=== PATIENT | female | born 1985 | race Asian ===

== ENCOUNTER 2023-08-08 11:42 | Emergency (ER) | payer OTHER, SELFPAY ==
[2023-08-08 11:46] VITALS: BP 181/111; PULSE 88; RESP 18; TEMP 36.2; O2SAT 96; BMI 38.7
--- NOTE | 2023-08-08 12:33 | ED.EAR ---
HPI - Ear Problem <Iram Washington PA-C - Last Filed: 08/08/23 14:28> General Chief complaint: Ear Stated complaint: Left oustide ear pain/swollen Time Seen by Provider: 08/08/23 12:17 History of Present Illness HPI Narrative: Patient is a 37-year-old female with diabetes who presents with an infection anterior to her left ear. She reports a history of having a surgery approximately 20 years ago due to what sounds like a sinus tract in front of her ear. Occasionally even after the surgery she develops drainage from this tract. Last week she had a cold and starting 5 days ago noticed drainage, swelling and pain from the area. She went to urgent care on [place] 2 days ago and received a prescription for Bactrim. She has taken 4 doses but presents today because she is having significant pain, and the infection does not seem to be getting better. There is a blister. She denies measured fever but endorses chills. She has no cough, no sore throat, no GI symptoms or other complaints. She has no pain inside her ear and no difficulty swallowing. Related Data Allergies Allergy/AdvReac Type Severity Reaction Status Date / Time salmon oil Allergy Hives Verified 08/08/23 11:50 shellfish derived Allergy Hives Verified 08/08/23 11:50 Review of Systems <Iram Washington PA-C - Last Filed: 08/08/23 14:28> Review of Systems ROS Unobtainable: All systems reviewed & are unremarkable except as noted in HPI and below Patient History <Iram Washington PA-C - Last Filed: 08/08/23 14:28> Social History Smoking Status: Never smoker Smoking Status: Never smoker alcohol intake frequency: a few times a month Substance Use Type: does not use Exam <Iram Washington PA-C - Last Filed: 08/08/23 14:28> Narrative Exam Narrative: GENERAL: 37 year old patient appears stated age. Well-developed patient, in mild distress. NEURO: AOx3. HEAD: Atraumatic. Normocephalic. EYES: Pupils equal round and reactive. Extraocular motions intact. No scleral icterus. No injection or drainage. ENT: Nose without bleeding or purulent drainage. Throat without erythema, tonsillar hypertrophy or exudate. Airway patent. Visible erythema, edema and pustule anterior to left ear. No mastoid tenderness or swelling. External auditory canal without purulence or erythema, TM pearly and clear. NECK: Trachea midline. Non tender. RESPIRATORY: No increased work of breathing or distress SKIN: No rash or erythema of visible areas Initial Vital Signs Initial Vital Signs: Vital Signs Temperature 97.1 F L 08/08/23 11:46 Pulse Rate 88 08/08/23 11:46 Respiratory Rate 18 08/08/23 11:46 Blood Pressure 181/111 H 08/08/23 11:46 Pulse Oximetry 96 08/08/23 11:46 Oxygen Delivery Method Room Air 08/08/23 11:46 <Carley Moore DO - Last Filed: 08/08/23 17:54> Initial Vital Signs Initial Vital Signs: Vital Signs Temperature 97.1 F L 08/08/23 11:46 Pulse Rate 88 08/08/23 11:46 Respiratory Rate 18 08/08/23 11:46 Blood Pressure 181/111 H 08/08/23 11:46 Pulse Oximetry 96 08/08/23 11:46 Oxygen Delivery Method Room Air 08/08/23 11:46 Procedures <Iram Washington PA-C - Last Filed: 08/08/23 14:28> Abscess I/D I&D #1: Site: other (preauricular) Side (if applicable): left Local Anesthetic: lidocaine 1% Amount of anesthesia used (mL): 0.5 Technique: incised with #11 blade Amount of fluid expressed (mL): 1 Course <Iram Washington PA-C - Last Filed: 08/08/23 14:28> Orders Ordered: ED Orders 08/08/23 12:58 Wound Culture and Gram Stain Stat Discontinued Medications Bacitracin (Bacitracin Oint 0.9 Gm Pckt) 1 applic TOP NOW ONE Stop: 08/08/23 12:56 Last Admin: 08/08/23 13:00 Dose: 1 applic Documented By: NEVILLE Lidocaine HCl (Lidocaine 1% (Pf) 5 Ml) 10 ml INJ NOW ONE Stop: 08/08/23 12:33 Last Admin: 08/08/23 12:41 Dose: 10 ml Documented By: NEVILLE Vital Signs Vital signs: Vital Signs - 8 hr 11/22/23 11:46 08/08/23 13:11 Temperature 97.1 F L Pulse Rate 88 85 Respiratory Rate 18 18 Blood Pressure 181/111 H 158/101 H Pulse Oximetry 96 99 Oxygen Delivery Method Room Air Room Air <Carley Moore DO - Last Filed: 08/08/23 17:54> Orders Ordered: ED Orders 08/08/23 12:58 Wound Culture and Gram Stain Stat Discontinued Medications Bacitracin (Bacitracin Oint 0.9 Gm Pckt) 1 applic TOP NOW ONE Stop: 08/08/23 12:56 Last Admin: 08/08/23 13:00 Dose: 1 applic Documented By: BS Lidocaine HCl (Lidocaine 1% (Pf) 5 Ml) 10 ml INJ NOW ONE Stop: 08/08/23 12:33 Last Admin: 08/08/23 12:41 Dose: 10 ml Documented By: NEVILLE Vital Signs Vital signs: Vital Signs - 8 hr 08/08/23 11:46 08/08/23 13:11 Temperature 97.1 F L Pulse Rate 88 85 Respiratory Rate 18 18 Blood Pressure 181/111 H 158/101 H Pulse Oximetry 96 99 Oxygen Delivery Method Room Air Room Air Medical Decision Making <Iram Washington PA-C - Last Filed: 08/08/23 14:28> MDM Narrative Medical decision making narrative: Multiple etiologies for patient's symptoms considered including, but not limited to: Cellulitis, cellulitis with abscess. Infection appears localized, no evidence of infection in the external auditory canal or TM. Patient does not have trismus or swelling in the neck. Abscess drained and 1-2 cc of purulent material expressed. Patient tolerated well. Wound culture sent. Advised patient to continue Bactrim, she has 8 days left. After the I&D I expect this will clear up more quickly. She can use Tylenol and ice or heat for comfort. If she develops fevers, acutely worsening pain or swelling or other worrisome symptoms, she should return for re-evaluation. If the infection has not resolved by the completion of the antibiotics, she should return for reassessment. Patient's symptoms improved over duration of stay with above-stated therapies. Findings and discharge diagnosis discussed with patient/family followed by verbalization of understanding Return precautions discussed with patient/family whom verbalize understanding of diagnosis and plan Discharge Plan Departure Patient Disposition: Home Clinical Impression: Abscess of preauricular sinus Instructions: DI for Cellulitis -- Adult Activity Restrictions/Additional Instructions: *You have been diagnosed with cellulitis with an abscess of preauricular pit. There is no evidence of infection ear ear. Today we were able to drain the abscess and collect a sample of the pus. If the culture grows a bacteria that we will not be well treated by the antibiotic you are already on, we will call you and let you know. Please continue taking the Bactrim twice daily until all the pills are gone. I would expect this medicine to work better now that we have drained the infection. Keep the area clean and dry. We have applied antibiotic ointment and a Band-Aid today you do not need to leave this in place after tonight. *What to do: *Please continue to take your regular medications as directed. [ ] New medication prescriptions sent to your pharmacy: [ ] [ ] New medication written as a paper prescription [x ] No new medications given *Please follow up with your primary care provider in 2-3 days, call for an appointment. Let them know you were seen in the Emergency Department and that we ask that you be seen in follow up. We will electronically transmit a record of today's note if your PCP is in our system *If you do not have a primary care provider please contact the [facility] Resource line at [phone]. They will ask some questions about your medical history and help get you set up with a doctor in the community. *Return to Emergency Department if you should have any new, worsening or concerning symptoms, such as [fever greater than 101 F, shaking chills, worsening pain, persistent vomiting or other concerning symptoms]. Stand Alone Forms: Patient Portal/API ED Sign-out <Carley Moore DO - Last Filed: 08/08/23 17:54> Cosign ED Attending Isabela Attestation: I was immediately available in the department for consultation.
[2023-08-08] MEDS: LIDOCAINE 1% (PF) 5 ML 10 ML INJ (12:41)
[2023-08-08] MEDS: BACITRACIN OINT 0.9 GM PCKT 1 APPLIC TOP (13:00)
[2023-08-08 13:11] VITALS: BP 158/101; PULSE 85; RESP 18; O2SAT 99
== END 2023-08-08 13:13 | disposition home or self-care (01) ==
PROVIDERS: Emergency Provider Physician Assistant
DX: H60.02 Abscess of left external ear (principal)
CPT/HCPCS: 69000; 87070; 87075; 87205; 99282; 99283

== ENCOUNTER 2024-06-22 17:45 | Emergency (ER) | payer OTHER, SELFPAY ==
[2024-06-22] VITALS (11 sets, daily range): BP systolic 141–214; BP diastolic 73–122; PULSE 77–128; RESP 10–24; TEMP 36.8; O2SAT 97–100; BMI 40.6
--- NOTE | 2024-06-22 17:49 | EKG_ITS ---
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
--- NOTE | 2024-06-22 18:17 | DI.RAD.S_ITS ---
PROCEDURE: XR CHEST 1V INDICATIONS: chest pain TECHNIQUE: One view of the chest was acquired. COMPARISON: None. FINDINGS: Surgical changes and devices: None. Lungs and pleura: Lungs are clear. No pleural effusions or pneumothorax. Mediastinum: Mediastinal contours appear normal. Heart size is normal. Bones and chest wall: No suspicious bony lesions. Overlying soft tissues appear unremarkable. IMPRESSION: No acute cardiopulmonary abnormality is seen. Approved by: Grant Ruelas M.D. on 06/22/2024 at 17:52
--- NOTE | 2024-06-22 18:19 | EKG_ITS ---
[place] [address] [place] [id number] Test Date: 2024-06-22 Pat Name: Fe Loco Department: 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
[2024-06-22 18:28] LABS: Add Manual Diff / Slide Review NO; Basophils Absolute Auto 100 /uL (0-100); Basophils Percent Auto 0.4 % (0-2); Eosinophils Absolute Auto 200 /uL (0-450); Eosinophils Percent Auto 1.3 % (2-4); Hematocrit 43.3 % (36-46); Hemoglobin 14.3 g/dL (12.0-16.0); Lymphocytes Absolute Auto 3700 /uL (1100-4500); Lymphocytes Percent Auto 31.3 % (25-40); Mean Corpuscular HGB Conc 33.1 % (30-36); Mean Corpuscular Hemoglobin 30.4 PG (26-34); Mean Corpuscular Volume 91.7 fL (80-100); Monocytes Absolute Auto 600 /uL (0-900); Monocytes Percent Auto 5.1 % (3-14); Neutrophils Absolute Auto 7400 /uL (1500-7000); Neutrophils Percent Auto 61.9 % (50-75); Platelet Count 264 X10^3/uL (150-400); Red Blood Cell Count 4.73 X10^6/uL (4.0-5.2); White Blood Cell Count 11.9 X10^3/uL (4.5-11.0)
[2024-06-22 18:32] LABS: INR 1.2 (0.9-1.3); Prothrombin Time 13.5 SECONDS (9.4-12.5)
[2024-06-22 18:35] LABS: PTT Partial Thromboplastin Tim 39 SECONDS (25.1-36.5)
[2024-06-22 18:37] LABS: Alanine Aminotransferase 40 IU/L (<35); Albumin 4.8 g/dL (3.5-5.0); Albumin Globulin Ratio 1.4 (1.0-2.8); Alkaline Phosphatase 95 U/L (38-126); Aspartate Aminotransferase 33 IU/L (14-36); BUN Creatinine Ratio 14.9 (6-22); Bilirubin Total 0.6 mg/dL (0.2-1.3); Blood Urea Nitrogen 13 mg/dL (7-17); Calcium 9.6 mg/dL (8.4-10.2); Carbon Dioxide 20 mmol/L (22-32); Chloride 105 mmol/L (98-107); Creatine Kinase 303 U/L (30-135); Estimated Glomerular Filt Rate > 60 mL/min (>60); Globulin 3.4 g/dL (1.7-4.1); Glucose 113 mg/dL (70-100); HEMOLYSIS 49 (0-50); Lipase 219 U/L (23-300); Magnesium 1.6 mg/dL (1.6-2.3); Sodium 138 mmol/L (137-145); Total Protein 8.2 g/dL (6.3-8.2)
[2024-06-22 18:49] LABS: NT-proBNP (BNP-Adult 18+) 1200 pg/mL (<125); Troponin I < 0.012 ng/mL (0.01-0.034)
--- NOTE | 2024-06-22 18:49 | ED.ARRPALP ---
HPI - Arrhythmia/Palpitations General Chief Complaint: Arrhythmia/Palpitations Stated Complaint: HBP, rapid heartbeat Time Seen by Provider: 06/22/24 18:19 Source: patient Mode of arrival: Ambulatory History of Present Illness HPI narrative: Patient is a 38-year-old female. Has a history of atrial fibrillation. He was on Eliquis. Is also on diltiazem, metoprolol and flecainide. She had an attempted cardioversion by Cardiology at the end of last week that was unsuccessful. She was scheduled to have another cardioversion at the end of this week. She comes emergency department today due to an elevation in her blood pressure and rapid heart rate. She states she was in atrial fibrillation all the time but she felt like her heart rate became much quicker earlier in the day today. She feels that she can feel her heartbeat all the way down into her toes. No chest pain. No shortness of breath. She also noticed that her blood pressure was elevated. She did not take her diltiazem this morning because her heart rate was in the 60s and her systolic blood pressure was in the 90s. Her instructions were to not take this medication if her heart rate and blood pressure were low. She did take a dose of her metoprolol before coming to the emergency department. She was not taken her evening rate control medications. Related Data Allergies Allergy/AdvReac Type Severity Reaction Status Date / Time salmon oil Allergy Hives Verified 08/08/23 11:50 shellfish derived Allergy Hives Verified 08/08/23 11:50 Review of Systems Review of Systems ROS Unobtainable: All systems reviewed & are unremarkable except as noted in HPI and below Patient History Social History Smoking Status: Never smoker Smoking Status: Never smoker alcohol intake frequency: a few times a month Substance Use Type: does not use Exam Initial Vital Signs Initial Vital Signs: Vital Signs Temperature 98.3 F 06/22/24 17:50 Pulse Rate 125 H 06/22/24 17:50 Respiratory Rate 21 06/22/24 17:50 Blood Pressure 214/122 H 06/22/24 17:50 Pulse Oximetry 99 06/22/24 17:50 Oxygen Delivery Method Room Air 06/22/24 17:50 Const General: cooperative, comfortable and No ill appearing HENMT Head: normal to inspection and normocephalic Resp Effort & Inspection: normal respiratory effort Auscultation: clear to auscultation bilaterally Cardio Rate: tachycardic Rhythm: regular rhythm GI Inspection: normal to inspection Skin General: no rashes or lesions noted Neuro General: patient alert, patient awake and moves all extremities Extrem General: capillary refill normal Course Orders Ordered: ED Orders 06/22/24 17:49 EKG-12 Lead Stat 06/22/24 18:10 Complete Blood Count AUTO DIFF Stat Comprehensive Metabolic Panel Stat Lipase Stat Magnesium Stat NT-proBNP (BNP-Adult 18+) Stat PTT Partial Thromboplastin [place] Stat Prothrombin Time INR Stat Troponin & CK Cardiac Panel Stat 06/22/24 18:17 XR chest 1V Stat 06/22/24 18:19 EKG-12 Lead Stat 06/22/24 20:44 EKG-12 Lead Stat Discontinued Medications Aspirin (Aspirin 81 Mg Chew Tab) 324 mg PO NOW ONE Stop: 06/22/24 18:18 Last Admin: 06/22/24 18:43 Dose: Not Given Documented By: RUFINO Vital Signs Vital signs: Vital Signs - 8 hr 06/22/24 18:25 06/22/24 18:28 06/22/24 18:28 Pulse Rate 127 H 128 H Respiratory Rate 12 11 L Blood Pressure 183/108 H Pulse Oximetry 99 Oxygen Delivery Method 06/22/24 18:30 06/22/24 18:30 06/22/24 19:00 Pulse Rate 128 H Respiratory Rate 10 L Blood Pressure 182/102 H 175/95 H Pulse Oximetry 100 Oxygen Delivery Method Room Air 06/22/24 19:00 06/22/24 19:30 06/22/24 19:32 Pulse Rate 116 H 121 H Respiratory Rate 21 Blood Pressure 187/105 H Pulse Oximetry 99 98 Oxygen Delivery Method 06/22/24 19:32 06/22/24 20:00 06/22/24 20:01 Pulse Rate 121 H 118 H Respiratory Rate 16 21 Blood Pressure 157/85 H Pulse Oximetry 97 98 Oxygen Delivery Method 06/22/24 20:01 06/22/24 20:30 06/22/24 21:00 Pulse Rate 118 H Respiratory Rate 21 Blood Pressure 141/86 H 149/73 H Pulse Oximetry 99 Oxygen Delivery Method 06/22/24 21:00 Pulse Rate 77 Respiratory Rate 24 Blood Pressure Pulse Oximetry 98 Oxygen Delivery Method MDM - Arrhythmia/Palpitations Lab Data Attestation: I reviewed the patient's lab results. 06/22/24 18:10 06/22/24 18:10 Labs: Lab Results 06/22/24 Range/Units 18:10 WBC 11.9 H (4.5-11.0) X10^3/uL RBC 4.73 (4.0-5.2) X10^6/uL Hgb 14.3 (12.0-16.0) g/dL Hct 43.3 (36-46) % MCV 91.7 (80-100) fL MCH 30.4 (26-34) PG MCHC 33.1 (30-36) % RDW 15.0 H (11.6-14.8) % Plt Count 264 (150-400) X10^3/uL Neut % (Auto) 61.9 (50-75) % Lymph % (Auto) 31.3 (25-40) % [place] % (Auto) 5.1 (3-14) % Eos % (Auto) 1.3 L (2-4) % Baso % (Auto) 0.4 (0-2) % Neut # (Auto) 7400 H (1816-4331) /uL Lymph # (Auto) 3700 (8486-4607) /uL [place] # (Auto) 600 (0-900) /uL Eos # (Auto) 200 (0-450) /uL Baso # (Auto) 100 (0-100) /uL PT 13.5 H (9.4-12.5) SECONDS INR 1.2 (0.9-1.3) APTT 39 H (25.1-36.5) SECONDS Sodium 138 (137-145) mmol/L Potassium 4.0 (3.4-5.1) mmol/L Chloride 105 (98-107) mmol/L Carbon Dioxide 20 L (22-32) mmol/L BUN 13 (7-17) mg/dL Creatinine 0.87 (0.52-1.04) mg/dL Estimated GFR > 60 (>60) mL/min BUN/Creatinine Ratio 14.9 (6-22) Glucose 113 H (70-100) mg/dL Calcium 9.6 (8.4-10.2) mg/dL Magnesium 1.6 (1.6-2.3) mg/dL Total Bilirubin 0.6 (0.2-1.3) mg/dL AST 33 (14-36) IU/L ALT 40 H (<35) IU/L Alkaline Phosphatase 95 (38-126) U/L Total Creatine Kinase 303 H (30-135) U/L Troponin I < 0.012 (0.01-0.034) ng/mL NT-Pro-B Natriuret Pep 1200 H (<125) pg/mL Total Protein 8.2 (6.3-8.2) g/dL Albumin 4.8 (3.5-5.0) g/dL Globulin 3.4 (1.7-4.1) g/dL Albumin/Globulin Ratio 1.4 (1.0-2.8) Lipase 219 (23-300) U/L Imaging Data Chest x-ray: Radiologist's Impresson: PROCEDURE: XR CHEST 1V INDICATIONS: chest pain TECHNIQUE: One view of the chest was acquired. COMPARISON: None. FINDINGS: Surgical changes and devices: None. Lungs and pleura: Lungs are clear. No pleural effusions or pneumothorax. Mediastinum: Mediastinal contours appear normal. Heart size is normal. Bones and chest wall: No suspicious bony lesions. Overlying soft tissues appear unremarkable. IMPRESSION: No acute cardiopulmonary abnormality is seen. ECG Data Attestation: I personally reviewed and interpreted this ECG as follows: Interpretation: Presentation EKG Atrial flutter Ventricular rate 128 Normal axis Normal QRS No ST T wave changes Repeat EKG Atrial flutter Ventricular rate [address] T wave changes Repeat EKG Atrial flutter Ventricular rate is [address] T wave changes MDM Narrative Medical decision making narrative: Patient has a known history of atrial fibrillation and it appears that she was in atrial flutter here in the ER. She was tachycardic. Labs are unremarkable. Initially she was given another dose of her home metoprolol and also her evening dose of the flecainide. This did improve her heart rate somewhat but she was still feeling the palpitations. She then was given her evening dose of diltiazem. Now her heart rate is more consistently in the 95-105 range. She was feeling better. She was on anticoagulation however we will hold on any cardioversion for now she was scheduled to have this done later this week Cardiology and she recently had a failed cardioversion advised the patient that tomorrow she should just start taking her normal rate control medications as directed. She was given return precautions and follow-up instructions. She expressed understanding and agreement. Discharge Plan Departure Patient Disposition: Home Clinical Impression: Atrial fibrillation Instructions: DI for Atrial Fibrillation Activity Restrictions/Additional Instructions: Recommend that you continue to take all of your medications as directed starting tomorrow morning. Keep all of your scheduled medical appointments. Return to the emergency department for new symptoms. Referrals: ProviderMichelle [Primary Care Provider] - Stand Alone Forms: Patient Portal/API
--- NOTE | 2024-06-22 18:50 | PC.NURSE ---
Provider okayed the patient to take their home 25mg of metoprolol and 100mg of flecanide
--- NOTE | 2024-06-22 20:49 | EKG_ITS ---
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
== END 2024-06-22 21:15 | disposition home or self-care (01) ==
PROVIDERS: Emergency Provider Emergency Medicine
DX: I48.92 Unspecified atrial flutter (principal); Z79.01 Long term (current) use of anticoagulants; R07.9 Chest pain, unspecified; R00.0 Tachycardia, unspecified; I10 Essential (primary) hypertension
CPT/HCPCS: 36415; 71045; 80053; 82550; 83690; 83735; 83880; 84484; 85025; 85610; 85730; 93005; 93010; 99283; 99284

== ENCOUNTER 2024-06-30 22:15 | Emergency (ER) | payer OTHER, SELFPAY ==
[2024-06-30] VITALS (9 sets, daily range): BP systolic 173–208; BP diastolic 72–116; PULSE 75–154; RESP 16–25; TEMP 37.3; O2SAT 98–99; BMI 40.1
--- NOTE | 2024-06-30 22:26 | EKG_ITS ---
[place] [id number] [place] [id number] Test Date: 2024-06-30 Pat Name: Fe Loco Department: [facility] Room: Gender: Female Critical Care Unit Nurse: JEY : 1985 Requested By: Order Number: [id number] Reading MD: Marv Kitchen Measurements Intervals [place] Rate: 149 P: [place]: QRS: 110 QRSD: 92 T: 1 QT: 338 QTc: 532 Interpretive Statements Critical Test Result: High HR Supraventricular tachycardia Left posterior fascicular block Inferior infarct , age undetermined Cannot rule out Anterior infarct , age undetermined Electronically Signed On 07-02-2024 18:06:22 PDT by Marv Kitchen
--- NOTE | 2024-06-30 22:27 | ED.ARRPALP ---
HPI - Arrhythmia/Palpitations General Chief Complaint: Arrhythmia/Palpitations Stated Complaint: sudden increase in bp Time Seen by Provider: 06/30/24 22:27 Source: patient Mode of arrival: Ambulatory History of Present Illness HPI narrative: Patient 38-year-old female history of atrial fibrillation on flecainide metoprolol Eliquis presenting today with AFib. She reports that she cardioversion with Cardiology 3 days ago she has previously had cardioversions which are difficult or do not last this seems to be similar. She says she was in sinus rhythm after the cardioversion but felt her heart racing in her watch told her that she was in AFib. She also noted elevated blood pressure as well. She also states that she is running out of her flecainide she was supposed to take a full tablet of flecainide which got increased from 50 mg to 100 mg but did not have enough so she has only been taking half. She was also told to stop taking her metoprolol after the cardioversion when she was in sinus rhythm. She just feels it palpating and fluttering inside chest/she is found to be in AFib with RVR heart rate is 154 Related Data Previous Rx's Medication Instructions Recorded flecainide 100 mg tablet 100 mg PO Q12H #60 tabs 07/01/24 Allergies Allergy/AdvReac Type Severity Reaction Status Date / Time salmon oil Allergy Hives Verified 08/08/23 11:50 shellfish derived Allergy Hives Verified 08/08/23 11:50 Patient History Social History Smoking Status: Never smoker Smoking Status: Never smoker alcohol intake frequency: a few times a month Substance Use Type: does not use Exam Initial Vital Signs Initial Vital Signs: Vital Signs Temperature 99.2 F 06/30/24 22:20 Pulse Rate 154 H 06/30/24 22:20 Respiratory Rate 16 06/30/24 22:20 Blood Pressure 176/116 H 06/30/24 22:20 Pulse Oximetry 98 06/30/24 22:20 Oxygen Delivery Method Room Air 06/30/24 22:20 GENERAL: Alert pleasant 38 year female HEENT: Head atraumatic,EOMI, pupils reactive, face symmetric, moist mucous membranes CARDIOVASCULAR: Irregularly irregular no murmur RESPIRATORY: Breath sounds equal bilaterally, no wheezes rales or rhonchi. ABDOMEN: Soft, nontender. Normoactive bowel sounds all 4 quadrants. No guarding or rebound. EXTREMITIES: Normal range of motion, no clubbing or edema. Neurovascularly intact NEUROLOGICAL: Alert and oriented x4.Normal gait and speech. Cranial nerves II through XII grossly intact. SKIN: Warm, dry, no laceration, no petechiae, no rashes or lesions. Course Orders Ordered: ED Orders 06/30/24 22:26 XR chest 1V Stat EKG-12 Lead Stat 06/30/24 22:34 Complete Blood Count AUTO DIFF Stat Comprehensive Metabolic Panel Stat Lipase Stat Magnesium Stat NT-proBNP (BNP-Adult 18+) Stat PTT Partial Thromboplastin Lorne Stat Prothrombin Time INR Stat Troponin & CK Cardiac Panel Stat Discontinued Medications Diltiazem HCl (Diltiazem 25 Mg/5 Ml Sdv) 10 mg IV NOW ONE Stop: 06/30/24 22:29 Last Admin: 06/30/24 22:35 Dose: 10 mg Documented By: JULIAN Flecainide Acetate (Flecainide 100 Mg Tablet) 100 mg PO NOW ONE Stop: 07/01/24 00:33 Last Admin: 07/01/24 00:49 Dose: 100 mg Documented By: CHANDU Metoprolol Tartrate (Metoprolol Tartrate 5 Mg/5 Ml Inj) 5 mg IV NOW ONE Stop: 07/01/24 00:33 Last Admin: 07/01/24 00:49 Dose: 5 mg Documented By: CHANDU Metoprolol Tartrate (Metoprolol Ir 25 Mg Tablet) 25 mg PO NOW ONE Stop: 07/01/24 00:33 Last Admin: 07/01/24 00:49 Dose: 25 mg Documented By: CHANDU Vital Signs Vital signs: Vital Signs - 8 hr 06/30/24 22:20 06/30/24 22:35 06/30/24 22:39 Temperature 99.2 F Pulse Rate 154 H 150 H Respiratory Rate 16 Blood Pressure 176/116 H 179/101 H Pulse Oximetry 98 Oxygen Delivery Method Room Air 06/30/24 22:40 06/30/24 22:45 06/30/24 22:45 Temperature Pulse Rate 146 H 75 Respiratory Rate 22 23 Blood Pressure 208/88 H Pulse Oximetry 99 99 Oxygen Delivery Method Room Air 06/30/24 23:00 06/30/24 23:01 06/30/24 23:01 Temperature Pulse Rate 75 75 Respiratory Rate 23 25 H Blood Pressure 184/81 H Pulse Oximetry 98 99 Oxygen Delivery Method Room Air 06/30/24 23:30 06/30/24 23:31 06/30/24 23:31 Temperature Pulse Rate 91 H 101 H Respiratory Rate 23 24 Blood Pressure 173/72 H Pulse Oximetry 99 98 Oxygen Delivery Method Room Air Room Air 07/01/24 00:00 07/01/24 00:01 07/01/24 00:01 Temperature Pulse Rate 144 H 144 H Respiratory Rate 19 23 Blood Pressure 148/73 H Pulse Oximetry 97 98 Oxygen Delivery Method Room Air 07/01/24 00:30 07/01/24 00:31 07/01/24 00:31 Temperature Pulse Rate 144 H 144 H Respiratory Rate 21 19 Blood Pressure 155/75 H Pulse Oximetry 98 98 Oxygen Delivery Method Room Air 07/01/24 01:00 07/01/24 01:01 07/01/24 01:01 Temperature Pulse Rate 75 75 Respiratory Rate 22 21 Blood Pressure 131/66 Pulse Oximetry 96 97 Oxygen Delivery Method Room Air MDM - Arrhythmia/Palpitations Lab Data 06/30/24 22:34 06/30/24 22:34 Labs: Lab Results 06/30/24 Range/Units 22:34 WBC 12.7 H (4.5-11.0) X10^3/uL RBC 4.79 (4.0-5.2) X10^6/uL Hgb 14.6 (12.0-16.0) g/dL Hct 43.5 (36-46) % MCV 90.8 (80-100) fL MCH 30.6 (26-34) PG MCHC 33.6 (30-36) % RDW 14.8 (11.6-14.8) % Plt Count 251 (150-400) X10^3/uL Neut % (Auto) 55.2 (50-75) % Lymph % (Auto) 35.6 (25-40) % [place] % (Auto) 7.1 (3-14) % Eos % (Auto) 1.3 L (2-4) % Baso % (Auto) 0.8 (0-2) % Neut # (Auto) 7000 (0694-4434) /uL Lymph # (Auto) 4500 (7551-0733) /uL [place] # (Auto) 900 (0-900) /uL Eos # (Auto) 200 (0-450) /uL Baso # (Auto) 100 (0-100) /uL PT 13.4 H (9.4-12.5) SECONDS INR 1.2 (0.9-1.3) APTT 40 H (25.1-36.5) SECONDS Sodium 137 (137-145) mmol/L Potassium 3.7 (3.4-5.1) mmol/L Chloride 104 (98-107) mmol/L Carbon Dioxide 18 L (22-32) mmol/L BUN 11 (7-17) mg/dL Creatinine 0.71 (0.52-1.04) mg/dL Estimated GFR > 60 (>60) mL/min BUN/Creatinine Ratio 15.5 (6-22) Glucose 99 (70-100) mg/dL Calcium 10.0 (8.4-10.2) mg/dL Magnesium 1.8 (1.6-2.3) mg/dL Total Bilirubin 0.5 (0.2-1.3) mg/dL AST 38 H (14-36) IU/L ALT 50 H (<35) IU/L Alkaline Phosphatase 107 (38-126) U/L Total Creatine Kinase 478 H (30-135) U/L Troponin I < 0.012 (0.01-0.034) ng/mL NT-Pro-B Natriuret Pep 359 H (<125) pg/mL Total Protein 8.5 H (6.3-8.2) g/dL Albumin 4.7 (3.5-5.0) g/dL Globulin 3.8 (1.7-4.1) g/dL Albumin/Globulin Ratio 1.2 (1.0-2.8) Lipase 220 (23-300) U/L Imaging Data Chest x-ray: Radiologist's Impresson: PROCEDURE: XR CHEST 1V INDICATIONS: chest pain TECHNIQUE: One view of the chest was acquired. COMPARISON: [facility], , XR CHEST 1V, 06/22/2024, 18:27. FINDINGS: Surgical changes and devices: None. Lungs and pleura: Lungs are clear. No pleural effusions or pneumothorax. Mediastinum: Mediastinal contours appear normal. Heart size is normal. Bones and chest wall: No suspicious bony lesions. Overlying soft tissues appear unremarkable. IMPRESSION: No acute cardiothoracic process. Dictated by: Arvin Amaral M.D. on 06/30/2024 at 22:59 ECG Data Attestation: I personally reviewed and interpreted this ECG as follows: Prior ECG tracings: available for review Interpretation: AFib with RVR rate 149 previous EKG does show atrial flutter rate 75 MDM Narrative Medical decision making narrative: MDM CC: Palpitations Complicating co-morbidities: Atrial fibrillation atrial flutter Medical records reviewed: Previous ED visits Differential considered: Atrial fibrillation Exam documented above, pertinent findings include: Awake alert well-appearing 38-year-old female initially tachycardic no lower extremity edema Lab Test results independently reviewed as above. Pertinent findings: WBC 12.7 previously 11.9 CMP significant electrolyte abnormalities bicarb is noted to be 18 it was previously 20 creatinine is 0.7 Elevation liver enzymes AST 30 ALT 50 BNP is 359, previously 1200, troponin negative Independently reviewed EKG as above AFib with RVR Imaging studies independently reviewed: Chest x-ray no acute cardiopulmonary process Consultations: None Treatments: Diltiazem 10 mg, flecainide 100, metoprolol 25 and Lopressor 5 Re-evaluations: Initially diltiazem worked but started wearing are often heart rate started creeping back up and she became more symptomatic Discussion: Patient 38-year-old female history of atrial fibrillation multiple cardioversions previously not really successful. It sounds as though she was cutting her flecainide from 100 mg to 50 mg. Her prescription is actually for 50 mg but some point she was told to go up but does not have enough pills for it. She was also told to stop her metoprolol after she was in sinus rhythm after her last cardioversion. She presents today with AFib with RVR. She initially responded well to diltiazem. However it did wear off and heart rate was back up again she is symptomatic when it is high feels much better when it is low. I gave her 100 mg of flecainide and 25 mg of metoprolol. Heart rate stabilized in the 70s. Recommend she call and follow up with Cardiology tomorrow Discharge Plan Departure Patient Disposition: Home Clinical Impression: Atrial fibrillation Instructions: DI for Atrial Fibrillation Activity Restrictions/Additional Instructions: *You have been diagnosed with atrial fibrillation *What to do: Please call your concrete technician tomorrow to discuss medications *Continue to take medications as directed Flecainide 100 mg twice a day *Follow up with your primary care provider in 2-3 days or call [phone] *Return to ER if you should have increased palpitations dizziness or lightheadedness or any new, worsening or concerning symptoms Prescriptions: New flecainide 100 mg tablet 100 mg PO Q12H Qty: 60 0RF Referrals: ProviderMichelle [Primary Care Provider] - Stand Alone Forms: Patient Portal/API
[2024-06-30] MEDS: dilTIAZem 25 MG/5 ML SDV 10 MG IV (22:35)
[2024-06-30 22:43] LABS: Add Manual Diff / Slide Review NO; Basophils Absolute Auto 100 /uL (0-100); Basophils Percent Auto 0.8 % (0-2); Eosinophils Absolute Auto 200 /uL (0-450); Eosinophils Percent Auto 1.3 % (2-4); Hematocrit 43.5 % (36-46); Hemoglobin 14.6 g/dL (12.0-16.0); Lymphocytes Absolute Auto 4500 /uL (1100-4500); Lymphocytes Percent Auto 35.6 % (25-40); Mean Corpuscular HGB Conc 33.6 % (30-36); Mean Corpuscular Hemoglobin 30.6 PG (26-34); Mean Corpuscular Volume 90.8 fL (80-100); Monocytes Absolute Auto 900 /uL (0-900); Monocytes Percent Auto 7.1 % (3-14); Neutrophils Absolute Auto 7000 /uL (1500-7000); Neutrophils Percent Auto 55.2 % (50-75); Platelet Count 251 X10^3/uL (150-400); Red Blood Cell Count 4.79 X10^6/uL (4.0-5.2); Red Cell Distribution Width 14.8 % (11.6-14.8); White Blood Cell Count 12.7 X10^3/uL (4.5-11.0)
[2024-06-30 22:51] LABS: INR 1.2 (0.9-1.3); Prothrombin Time 13.4 SECONDS (9.4-12.5)
[2024-06-30 22:53] LABS: PTT Partial Thromboplastin Tim 40 SECONDS (25.1-36.5)
[2024-06-30 22:56] LABS: Alanine Aminotransferase 50 IU/L (<35); Albumin 4.7 g/dL (3.5-5.0); Albumin Globulin Ratio 1.2 (1.0-2.8); Alkaline Phosphatase 107 U/L (38-126); Aspartate Aminotransferase 38 IU/L (14-36); BUN Creatinine Ratio 15.5 (6-22); Bilirubin Total 0.5 mg/dL (0.2-1.3); Blood Urea Nitrogen 11 mg/dL (7-17); Carbon Dioxide 18 mmol/L (22-32); Chloride 104 mmol/L (98-107); Creatine Kinase 478 U/L (30-135); Estimated Glomerular Filt Rate > 60 mL/min (>60); Globulin 3.8 g/dL (1.7-4.1); Glucose 99 mg/dL (70-100); HEMOLYSIS 23 (0-50); Lipase 220 U/L (23-300); Magnesium 1.8 mg/dL (1.6-2.3); Potassium 3.7 mmol/L (3.4-5.1); Sodium 137 mmol/L (137-145); Total Protein 8.5 g/dL (6.3-8.2)
[2024-06-30 23:07] LABS: NT-proBNP (BNP-Adult 18+) 359 pg/mL (<125); Troponin I < 0.012 ng/mL (0.01-0.034)
[2024-07-01] VITALS: PULSE 144; RESP 19; O2SAT 97
[2024-07-01 00:01] VITALS: BP 148/73; PULSE 144; RESP 23; O2SAT 98
[2024-07-01 00:30] VITALS: PULSE 144; RESP 21; O2SAT 98
[2024-07-01 00:31] VITALS: BP 155/75; PULSE 144; RESP 19; O2SAT 98
[2024-07-01] MEDS: METOPROLOL IR 25 MG TABLET PO (00:49)
[2024-07-01] MEDS: METOPROLOL TARTRATE 5 MG/5 ML INJ IV (00:49)
[2024-07-01] MEDS: FLECAINIDE 100 MG TABLET PO (00:49)
[2024-07-01 01:00] VITALS: PULSE 75; RESP 22; O2SAT 96
[2024-07-01 01:01] VITALS: BP 131/66; PULSE 75; RESP 21; O2SAT 97
== END 2024-07-01 01:33 | disposition home or self-care (01) ==
PROVIDERS: Emergency Provider Emergency Medicine
DX: I48.91 Unspecified atrial fibrillation (principal); Z79.01 Long term (current) use of anticoagulants
CPT/HCPCS: 36415; 71045; 80053; 82550; 83690; 83735; 83880; 84484; 85025; 85610; 85730; 93005; 96374; 96375; 99284